=== PATIENT | female | born 1995 | race Two or more races ===

== ENCOUNTER 2017-06-17 11:31 | Emergency (ER) | payer MEDICAID ==
[~2017-06-17] VITALS: Ht 157.5 cm; Wt 80.2 kg
[2017-06-17] MEDS ORDERED: SODIUM CHLORIDE FLUSH 10ML SYR IVF ONE (12:30)
[2017-06-17] MEDS ORDERED: ONDANSETRON 2MG/ML, 2ML IVPush ONE (12:30)
[2017-06-17] MEDS ORDERED: SODIUM CHLORIDE 0.9% 1,000ML IVBOLUS ONE (12:30)
[2017-06-17] MEDS ORDERED: ONDANSETRON 2MG/ML, 2ML ONE (12:47)
[2017-06-17 13:18] LABS: ASPARTATE AMINO TRANSFERASE 16 U/L (15-37); BLOOD UREA NITROGEN 8 mg/dL (7-18)
[2017-06-17 14:33] VITALS: BP 99/50
== END 2017-06-17 14:42 | disposition home or self-care (01) ==
LOC: ED 14:30
DX: E28.2 Polycystic ovarian syndrome (principal); R10.31 Right lower quadrant pain
CPT/HCPCS: 36415; 76830; 80053; 81001; 84703; 85025; 96361; 96374; 99285; J2405; J7030